=== PATIENT | male | born 1950 | race Caucasian/White ===

== ENCOUNTER 2020-06-22 12:38 | Inpatient (IN) | payer MEDICARE ==
[2020-06-22] MEDS: SODIUM CHLORIDE 0.9% 1,000 ML IV SCH ×2 (13:05→20:50)
[2020-06-22] MEDS ORDERED: HYDROmorphone 0.5 MG/0.5 ML SYRINGE IVP STA (13:45)
[2020-06-22 14:37] LABS: Glucose,Whole Blood 115 mg/dL (75-99)
[2020-06-22 14:41] LABS: Basophils # (A) 0.1 k/uL (0-0.2); Basophils % (A) 1 %; Eosinophils # (A) 0.1 k/uL (0-0.7); Eosinophils % (A) 2 %; HGB 13.6 gm/dL (13.0-17.5); Lymphocytes # (A) 1.4 k/uL (1.0-4.8); Lymphocytes % (A) 22 %; MCH 28.1 pg (25.0-35.0); MCV 82.9 fL (80.0-100.0); Mean Platelet Volume 6.8; Monocytes # (A) 0.5 k/uL (0-1.0); Monocytes % (A) 8 %; Neutrophils # (A) 4.1 k/uL (1.3-7.7); Neutrophils % (A) 64 %; Platelet Count 295 k/uL (150-450); RBC 4.83 m/uL (4.30-5.90); RDW 13.5 % (11.5-15.5); WBC 6.4 k/uL (3.8-10.6)
[2020-06-22 14:51] LABS: Calcium 9.6 mg/dL (8.4-10.2)
[2020-06-22] MEDS ORDERED: LIDOCAINE 1% INJ 10MG/ML (20 ML MDV) ONE (15:42)
[2020-06-22] MEDS ORDERED: SODIUM CHLORIDE 0.9% 1,000 ML IV ONE (15:47)
[2020-06-22] MEDS ORDERED: MIDAZOLAM 2 MG/2 ML VIAL IV ONE (16:13)
[2020-06-22] MEDS ORDERED: LIDOCAINE 1% INJ 10MG/ML (20 ML MDV) SQ ONE (16:15)
[2020-06-22] MEDS ORDERED: BIVALIRUDIN BOLUS 250 MG/50 ML IV ONE (16:20)
[2020-06-22] MEDS ORDERED: fentaNYL (PF) 50 MCG/ML 2 ML AMP ONE (16:20)
[2020-06-22] MEDS: fentaNYL (PF) 50 MCG/ML 2 ML AMP IV ONE ×2 (16:21→16:49)
[2020-06-22] MEDS ORDERED: BIVALIRUDIN 250 MG in SODIUM CHLORIDE 0.9% 50 ML IV ONE (16:22)
[2020-06-22] MEDS ORDERED: IOPAMIDOL-370 100ML BTL INJ ONE ×2 (16:39→17:30)
[2020-06-22] MEDS ORDERED: TICAGRELOR 90 MG TAB ONE (17:11)
[2020-06-22] MEDS ORDERED: TICAGRELOR 90 MG TAB PO ONE (17:13)
[2020-06-22] MEDS: NITROGLYCERIN 1000MCG/10ML SYRINGE INTRACORON ONE ×2 (17:19→17:20)
[2020-06-22] MEDS ORDERED: RX INFO: IV CONTRAST WAS GIVEN 1 EACH MISC MISCELLANE PRN (17:37)
[2020-06-22] MEDS ORDERED: ZOLPIDEM 5 MG TAB PO PRN (17:37)
[2020-06-22] MEDS ORDERED: NITROGLYCERIN SL TABS 0.4 MG TAB SUBLINGUAL PRN (17:37)
[2020-06-22] MEDS ORDERED: ATROPINE SULFATE 0.1 MG/ML 10ML SYRINGE IV PRN (17:37)
[2020-06-22] MEDS ORDERED: MAG HYDROX/AL HYDROX/SIMETH 30 ML CUP PO PRN (17:37)
--- NOTE | 2020-06-22 18:44 | PTCA ---
PERCUTANEOUSTRANS CORORONARY ANGIOGRAPHY PROCEDURE: 1. PTCA of a totally occluded vein graft to the obtuse marginal which was unsuccessful. 2. PTCA and stenting of a mid RCA, a very dominant, heavily calcified vessel, with a drug-eluting stent. Excellent result. 3. Selective injection of the left internal mammary artery graft to LAD. PERFORMED BY: Dr. Mayra Watson. Moderate conscious sedation time was 73 minutes. Patient was administered Versed. Oxygen saturation, hemodynamics and EKG were monitored closely. CLINICAL INFORMATION: Mr. Manoj Pompa is a 70-year-old gentleman with a known history of CAD, prior bypass surgery, hypertension, hyperlipidemia,and type 2 diabetes mellitus. He came in with syncope to [facility], had troponin elevation, underwent cardiac catheterization by Dr. Ventura after evaluation by Dr. Wade. Study revealed that his CARR was not identified. Two vein grafts were occluded. [place] RCA had a distal RCA stent and also mid RCA had a 95% stenosis with calcification. He was advised intervention and transferred here. If CARR was indeed occluded, this would be a high- risk PCI. I explained this to the patient and his and explained to them that I will try to open the totally occluded vein graft to the obtuse marginal. If unsuccessful, I would then consider a CARR reinjection to see if it is patent. If CARR was closed, he would require an Impella-supported PCI tomorrow. If CARR is open, I will perform PCI of RCA today. After explaining this to the patient and his , I brought him back to the cook house laborer around 4 p.m. They understood all details, including risks, benefits and options and wished to proceed. PROCEDURE NOTE: The existing 6-Uruguayan introducer in the right femoral artery was used to perform the procedure. I used a hockey-stick guide catheter to cannulate the vein graft to the obtuse marginal. I used a Whisper wire with a 2.5 balloon. With this combination I could not cross the total occlusion. It appears to be a chronic occlusion. I then switched over my efforts to check the CARR. I used a Charlie catheter and with this I performed selective injection of the left internal mammary artery graft, which was widely patent and without disease, and beyond the insertion site within the LAD there was a 70% eccentric calcified narrowing with good flow. The CARR appears to provide a good amount of circulation to the entire left system. It opacifies the LAD and diagonal, but LAD after the insertion site beyond the 2 diagonal seems to have a calcified area of narrowing. Subsequently I turned my attention to the RCA, and in view of the fact the CARR was patent, I recommended that I will proceed with RCA intervention. PCI PROCEDURE DETAILS: I used initially a multipurpose catheter but I was unable to cannulate well. I switched over to a standard right Di guide catheter of 6-Uruguayan caliber and cannulated the RCA. A run-through wire was used to cross the lesion. Wire was kept in the PLV branch. I had difficulty in getting to the lesion because of tight calcification and narrowing. I used initially a 2.5 balloon. With this I was not successful. With a 2.25 balloon I was able to open up the vessel mildly to a reasonable extent. I then advanced a 3.0 caliber 12 mm NC Trek. With this I pre-dilated the lesion. I tried to advance a 15 mm long 3.5 stent, but I had difficulty. I then double-wired. Using the run-through as a lani, I used a Whisper wire, and over the Whisper wire I advanced a 3.5 caliber 15 mm Xience stent and deployed this at the lesion at 15 atmospheres. Patient had mild chest discomfort. No significant EKG changes. Excellent angiographic result was achieved without complication. It appears in the distal RCA there is a stent which was widely patent, and this apparently was a stent that was placed sometime 4 or 5 years after his bypass. So the distal RCA before bifurcation has a patent stent. Mid RCA was now stented with a 3.5 caliber 15 mm Xience stent at high pressures. The entire RCA appears to be calcified. Excellent angiographic result without complication was achieved. Patient received 180 mg of Brilinta and also received Angiomax bolus and infusion. The sheath was taken out with an Angio-Seal device used to secure hemostasis and he was sent to the room in stable condition. Results were discussed with the patient as well as his on the phone. I expect him to be discharged tomorrow afternoon, and we will assess the LAD severity by a stress test and consider intervention if it is significant. MMODL / IJN: [id number] /
[2020-06-22 20:05] LABS: Glucose,Whole Blood 133 mg/dL (75-99)
[2020-06-22] MEDS: SYMBICORT 160-4.5 MCG INHALER INHALATION SCH (20:26)
[2020-06-22] MEDS: METOPROLOL TARTRATE 12.5 MG TAB PO SCH (20:49)
[2020-06-22] MEDS: FAMOTIDINE 20 MG TAB PO SCH (20:49)
[2020-06-22] MEDS ORDERED: ATORVASTATIN 80 MG TAB PO SCH (21:00)
--- NOTE | 2020-06-22 21:56 | P.HPIM ---
History of Present Illness H&P Date: 06/22/20 Chief Complaint: Coronary artery disease History of presenting complaint: This is a pleasant 70-year-old patient who follows with Dr. Ganga Wren. Chronic stable medical conditions include diabetes, hypertension, atrial fibrillation, asthma, hyperlipidemia, GERD. Patient has a known history of coronary artery disease with stent and bypass. Patient had presented to [facility] then he was working with the stools and felt dizzy and patient had passed out. Patient's troponins were 0.041 and 0.080. Patient underwent cardiac catheterization by Dr. Eugenio Wade was found to have 95% stenosis of mid RCA and occluded graft to the diagonal and obtuse marginal. Also some left-sided disease. Patient was therefore transferred for further intervention to [facility]. Patient was taken to the Lab and successful intervention was done more details and Dr. SHANE Watson's notes. Postprocedure patient laying in bed. Comfortable. Review of systems: GEN.: None EYES: None HEENT: None NECK: None RESPIRATORY: None CARDIOVASCULAR: None GASTROINTESTINAL: None GENITOURINARY: None MUSCULOSKELETAL: None LYMPHATICS: None HEMATOLOGICAL: None PSYCHIATRY: None NEUROLOGICAL: None Past medical history to include: Coronary artery disease with stent, bypass, diabetes, hypertension, atrial fibrillation, asthma, hyperlipidemia, GERD, with ablation Past surgical history include: , coronary artery disease with stent ablation, bypass Social history: Does not smoke. Drinks one or 2 drinks per week. . Retired from [employer] use or no fever. Physical examination: VITAL SIGNS: 98, 69, 18, 140/63, 98% room air GENERAL: BMI 30.7, laying in bed, comfortable. EYES: Pupils equal. Conjunctiva normal. HEENT: External appearance of nose and ears normal, oral cavity grossly normal. NECK: JVD not raised; masses not palpable. HEART: First and second heart sounds are normal; no edema. LUNGS: Respiratory rate normal; clear to auscultation. ABDOMEN: Soft, nontender, liver spleen not palpable, no masses palpable. PSYCH: Alert and oriented x3; mood and affect normal. NEUROLOGICAL: Cranial nerves grossly intact; no facial asymmetry, power and sensation grossly intact. LYMPHATICS: No lymph nodes palpable in the axilla and neck INVESTIGATIONS, reviewed in the clinical context: Lab work was noted at in patient's medical records at [facility]. From today. Troponins-0.041, 0.080 Assessment: -Syncope from patient having underlying significant coronary artery disease. Patient underwent successful angioplasty of totally occluded vein graft to the obtuse marginal, which was unsuccessful. Angioplasty stenting of mid RCA heavily calcified vessel, selective injection of the left internal mammary artery graft to LAD. -Coronary artery disease -Diabetes mellitus type 2 -Essential hypertension -Paroxysmal atrial fibrillation and history of ablation -Hyperlipidemia -GERD -Obesity BMI 30.7 Plan: . Patient's current medications include Lipitor, Pepcid, Glucotrol, Hyzaar, Lopressor, Singler, Aldactone, Brilinta, Repeat labs in the morning. Care was discussed with the patient questions answered. Past Medical History Past Medical History: Atrial Fibrillation, Asthma, Coronary Artery Disease (CAD), Diabetes Mellitus, GERD/Reflux, Hyperlipidemia, Hypertension History of Any Multi-Drug Resistant Organisms: None Reported Past Surgical History: Ablation, Coronary Bypass/CABG, Heart Catheterization With Stent, Tonsillectomy Additional Past Surgical History / Comment(s): Carotid Stent Past Anesthesia/Blood Transfusion Reactions: No Reported Reaction Date of Last Stent Placement:: 06/22/2020 Past Psychological History: No Psychological Hx Reported Smoking Status: Never smoker Past Alcohol Use History: Occasional Additional Past Alcohol Use History / Comment(s): 1-2 drinks a weel Past Drug Use History: None Reported - Past Family History Father Family Medical History: No Reported History Medications and Allergies Home Medications Medication Instructions Recorded Confirmed Type Aspirin [Adult Low Dose Aspirin EC] 81 mg PO DAILY 06/22/20 06/22/20 History Budesonide/Formoterol Fumarate 2 puff INHALATION BID 06/22/20 06/22/20 History [Symbicort 160-4.5 Mcg Inhaler] Famotidine 40 mg PO BID 06/22/20 06/22/20 History Fish Oil/Dha/Epa [Fish Oil 1,200 1 cap PO DAILY 06/22/20 06/22/20 History mg Fish Oil] Gemfibrozil [Lopid] 600 mg PO AC-BID 06/22/20 06/22/20 History Ipratropium-Albuterol Nebulize 3 ml INHALATION DAILY 06/22/20 06/22/20 History [Duoneb 0.5 mg-3 mg/3 ml Soln] Losartan/Hydrochlorothiazide 1 tab PO DAILY 06/22/20 06/22/20 History [Losartan-Hctz 100-25 mg Tab] Metoprolol Tartrate [Lopressor] 12.5 mg PO BID 06/22/20 06/22/20 History Montelukast [Singulair] 10 mg PO DAILY 06/22/20 06/22/20 History Multivitamins, Thera [Multivitamin 1 tab PO DAILY 06/22/20 06/22/20 History (formulary)] Rosuvastatin [Crestor] 10 mg PO DAILY 06/22/20 06/22/20 History Spironolactone 25 mg PO DAILY 06/22/20 06/22/20 History Tiotropium 2.5 Mcg/Puff [Spiriva 2 puff INHALATION PC-BID 06/22/20 06/22/20 History Respimat 2.5 Mcg] Warfarin [Coumadin] 7.5 mg PO HS 06/22/20 06/22/20 History glipiZIDE [Glucotrol] 5 mg PO AC-BRKFST 06/22/20 06/22/20 History metFORMIN HCL 1,000 mg PO BID 06/22/20 06/22/20 History Allergies Allergy/AdvReac Type Severity Reaction Status Date / Time Penicillins Allergy Unknown Verified 06/22/20 13:19 Childhood Sulfa (Sulfonamide Allergy Unknown Verified 06/22/20 13:19 Antibiotics) Childhood levofloxacin AdvReac Chest Pain Verified 06/22/20 13:19 Physical Exam Vitals: Vital Signs Temp Pulse Resp BP Pulse Ox 06/22/20 21:22 68 18 140/63 98 06/22/20 20:00 98.0 F 69 18 158/70 97 06/22/20 18:52 64 16 165/73 96 06/22/20 18:22 62 16 153/58 97 06/22/20 18:07 67 16 157/76 96 06/22/20 17:52 69 16 155/75 06/22/20 17:37 67 16 157/76 96 06/22/20 14:15 60 16 144/67 94 L 06/22/20 13:45 64 16 186/86 97 06/22/20 13:20 56 L 16 173/84 96 Intake and Output 06/22/20 06/22/20 06/22/20 06:59 14:59 22:59 Intake Total 150 379 Output Total 250 350 Balance -100 29 Intake: IV 150 129 Oral 250 Output: Urine 250 350 Other: Voiding Method Urinal Weight 99.79 kg 99.79 kg Results CBC & Chem 7: 06/22/20 14:02 06/22/20 14:02 Labs: Abnormal Lab Results - Last 24 Hours (Table) 06/22/20 06/22/20 06/22/20 Range/Units 14:02 14:34 20:04 BUN 23 H (9-20) mg/dL Glucose 115 H (74-99) mg/dL POC Glucose (mg/dL) 115 H 133 H (75-99) mg/dL Thrombosis Risk Factor Assmnt - Choose All That Apply Any of the Below Risk Factors Present?: Yes Each Factor Represents 1 point: Obesity (BMI >25) Other Risk Factors: Yes Each Risk Factor Represents 2 Points: Age 61-74 years Thrombosis Risk Factor Assessment Total Risk Factor Score: 3 Thrombosis Risk Factor Assessment Level: Moderate Risk
[2020-06-23] MEDS ORDERED: IPRATROPIUM-ALBUTEROL 3 ML NEB INHALATION PRN (03:25)
[2020-06-23] MEDS: SODIUM CHLORIDE 0.9% 1,000 ML IV SCH ×2 (04:23)
[2020-06-23 06:25] LABS: Glucose,Whole Blood 117 mg/dL (75-99)
[2020-06-23] MEDS ORDERED: glipiZIDE 5 MG TAB PO SCH (07:30)
[2020-06-23] MEDS ORDERED: IPRATROPIUM-ALBUTEROL 3 ML NEB INHALATION SCH (08:00)
[2020-06-23] MEDS: SYMBICORT 160-4.5 MCG INHALER INHALATION SCH (08:22)
[2020-06-23] MEDS ORDERED: LOSARTAN-HCTZ 50-12.5 MG 1 EACH TAB PO SCH (09:00)
[2020-06-23] MEDS ORDERED: NON FORMULARY DRUG (Fish Oil/Dha/Epa [Fish Oil 1,200 Mg Fish Oil] 1 EACH Capsule) PO SCH (09:00)
[2020-06-23] MEDS ORDERED: ASPIRIN 81 MG PO SCH (09:00)
[2020-06-23] MEDS ORDERED: SPIRONOLACTONE 25 MG TAB PO SCH (09:00)
[2020-06-23] MEDS ORDERED: TICAGRELOR 90 MG TAB PO SCH (09:00)
[2020-06-23] MEDS ORDERED: MONTELUKAST 10 MG TAB PO SCH (09:00)
[2020-06-23 09:04] LABS: Basophils % (A) 0 %; Eosinophils # (A) 0.2 k/uL (0-0.7); Eosinophils % (A) 2 %; HCT 42.2 % (39.0-53.0); HGB 13.9 gm/dL (13.0-17.5); Lymphocytes # (A) 1.3 k/uL (1.0-4.8); Lymphocytes % (A) 15 %; MCH 27.6 pg (25.0-35.0); MCV 83.5 fL (80.0-100.0); Mean Platelet Volume 6.6; Monocytes # (A) 0.4 k/uL (0-1.0); Monocytes % (A) 5 %; Neutrophils # (A) 6.6 k/uL (1.3-7.7); Neutrophils % (A) 77 %; Platelet Count 302 k/uL (150-450); RBC 5.05 m/uL (4.30-5.90); RDW 13.5 % (11.5-15.5); WBC 8.6 k/uL (3.8-10.6)
[2020-06-23 09:16] LABS: Calcium 9.8 mg/dL (8.4-10.2); Potassium 3.8 mmol/L (3.5-5.1)
[2020-06-23] MEDS: FAMOTIDINE 20 MG TAB PO SCH (09:21)
[2020-06-23] MEDS: METOPROLOL TARTRATE 12.5 MG TAB PO SCH (09:22)
--- NOTE | 2020-06-23 10:21 | P.DS ---
Providers Date of admission: 06/22/20 13:00 Attending physician: Adam Lee Consults: 06/22/20 17:37 Consult Physician Routine Consulting Provider: [facility] Consult Reason/Comments: Post Interventional patient Do you want consulting provider notified?: Already Contacted Primary care physician: [facility] Course: 70-year-old patient who follows with Dr. Ganga Wren. Chronic stable medical conditions include diabetes, hypertension, atrial fibrillation, asthma, hyperlipidemia, GERD. Patient has a known history of coronary artery disease with stent and bypass. Patient had presented to [facility] then he was working with the stools and felt dizzy and patient had passed out. Patient's troponins were 0.041 and 0.080. Patient underwent cardiac cat heterization by Dr. Eugenio Wade was found to have 95% stenosis of mid RCA and occluded graft to the diagonal and obtuse marginal. Also some left-sided disease. Patient was therefore transferred for further intervention to [facility]. Patient was taken to the Lab and successful intervention was done more details and Dr. SHANE Watson's notes. Postprocedure patient laying in bed. Comfortable. 06/23/2020 Patient had a cardiac catheterization and appears to have stent to RCA, patient the head and occluded vein graft and obtuse marginal and stent to that was unsuccessful and patient is cleared for discharge and patient will be discharged today because of the borderline kidney function hydrochlorothiazide low-dose may not be effective on this medication will be discontinued and patient will be discharged on losartan and patient will follow with PCP and his pony rougher as an outpatient PHYSICAL EXAMINATION: GENERAL: The patient is alert and oriented x3, not in any acute distress. Well developed, well nourished. HEENT: Pupils are round and equally reacting to light. EOMI. No scleral icterus. No conjunctival pallor. Normocephalic, atraumatic. No pharyngeal erythema. No thyromegaly. CARDIOVASCULAR: S1 and S2 present. No murmurs, rubs, or gallops. PULMONARY: Chest is clear to auscultation, no wheezing or crackles. ABDOMEN: Soft, nontender, nondistended, normoactive bowel sounds. No palpable organomegaly. MUSCULOSKELETAL: No joint swelling or deformity. EXTREMITIES: No cyanosis, clubbing, or pedal edema. NEUROLOGICAL: Gross neurological examination did not reveal any focal deficits. SKIN: No rashes. Assessment: -Syncope from patient having underlying significant coronary artery disease. Patient underwent successful angioplasty of totally occluded vein graft to the obtuse marginal, which was unsuccessful. Angioplasty stenting of mid RCA heavily calcified vessel, selective injection of the left internal mammary artery graft to LAD. -Coronary artery disease -Diabetes mellitus type 2 -Essential hypertension -Paroxysmal atrial fibrillation and history of ablation -Hyperlipidemia -GERD -Obesity BMI 30.7 Plan - Discharge Summary Discharge Rx Participant: No New Discharge Prescriptions: New Losartan [Cozaar] 50 mg PO DAILY #30 tab Continue Montelukast [Singulair] 10 mg PO DAILY Budesonide/Formoterol Fumarate [Symbicort 160-4.5 Mcg Inhaler] 2 puff INHALATION BID Metoprolol Tartrate [Lopressor] 12.5 mg PO BID metFORMIN HCL 1,000 mg PO BID glipiZIDE [Glucotrol] 5 mg PO AC-BRKFST Gemfibrozil [Lopid] 600 mg PO AC-BID Famotidine 40 mg PO BID Warfarin [Coumadin] 7.5 mg PO HS Tiotropium 2.5 Mcg/Puff [Spiriva Respimat 2.5 Mcg] 2 puff INHALATION PC-BID Spironolactone 25 mg PO DAILY Rosuvastatin [Crestor] 10 mg PO DAILY Ipratropium-Albuterol Nebulize [Duoneb 0.5 mg-3 mg/3 ml Soln] 3 ml INHALATION DAILY Multivitamins, Thera [Multivitamin (formulary)] 1 tab PO DAILY Fish Oil/Dha/Epa [Fish Oil 1,200 mg Fish Oil] 1 cap PO DAILY Aspirin [Adult Low Dose Aspirin EC] 81 mg PO DAILY Discontinued Losartan/Hydrochlorothiazide [Losartan-Hctz 100-25 mg Tab] 1 tab PO DAILY Discharge Medication List Aspirin [Adult Low Dose Aspirin EC] 81 mg PO DAILY 06/22/20 [History] Budesonide/Formoterol Fumarate [Symbicort 160-4.5 Mcg Inhaler] 2 puff INHALATION BID 06/22/20 [History] Famotidine 40 mg PO BID 06/22/20 [History] Fish Oil/Dha/Epa [Fish Oil 1,200 mg Fish Oil] 1 cap PO DAILY 06/22/20 [History] Gemfibrozil [Lopid] 600 mg PO AC-BID 06/22/20 [History] Ipratropium-Albuterol Nebulize [Duoneb 0.5 mg-3 mg/3 ml Soln] 3 ml INHALATION DAILY 06/22/20 [History] Metoprolol Tartrate [Lopressor] 12.5 mg PO BID 06/22/20 [History] Montelukast [Singulair] 10 mg PO DAILY 06/22/20 [History] Multivitamins, Thera [Multivitamin (formulary)] 1 tab PO DAILY 06/22/20 [Histor y] Rosuvastatin [Crestor] 10 mg PO DAILY 06/22/20 [History] Spironolactone 25 mg PO DAILY 06/22/20 [History] Tiotropium 2.5 Mcg/Puff [Spiriva Respimat 2.5 Mcg] 2 puff INHALATION PC-BID 06/22/20 [History] Warfarin [Coumadin] 7.5 mg PO HS 06/22/20 [History] glipiZIDE [Glucotrol] 5 mg PO AC-BRKFST 06/22/20 [History] metFORMIN HCL 1,000 mg PO BID 06/22/20 [History] Losartan [Cozaar] 50 mg PO DAILY #30 tab 06/23/20 [Rx] Follow up Appointment(s)/Referral(s): Jagdish Wren MD [REFERRING] - 1 Week Discharge Disposition: HOME SELF-CARE
[2020-06-23 11:10] VITALS: BP 156/72; PULSE 65; RESP 16; TEMP 98.1
[2020-06-23 11:47] LABS: Glucose,Whole Blood 104 mg/dL (75-99)
[2020-06-23] MEDS ORDERED: IPRATROPIUM 0.5 MG/2.5 ML NEBU INHALATION SCH (12:00)
[2020-06-23 18:19] LABS: Hemoglobin A1C 6.8 % (4.0-6.0)
== END 2020-06-23 13:15 | disposition home or self-care (01) | DRG 247 ==
LOC: 2ORMAIN 13:00 → 3SCARD 17:43
PROVIDERS: ADMIT Hospitalist; ATTEND Hospitalist
PROC: B2121ZZ Fluoroscopy of Single Coronary Artery Bypass Graft using Low Osmolar Contrast (ICD-10-PCS; principal; 2020-06-22 14:40)
PROC: 027034Z Dilation of Coronary Artery, One Artery with Drug-eluting Intraluminal Device, Percutaneous Approach (ICD-10-PCS; principal; 2020-06-22 14:40)
DX: I25.10 Atherosclerotic heart disease of native coronary artery without angina pectoris (principal); I25.810 Atherosclerosis of coronary artery bypass graft(s) without angina pectoris; E66.9 Obesity, unspecified; E11.9 Type 2 diabetes mellitus without complications; E78.5 Hyperlipidemia, unspecified; I10 Essential (primary) hypertension; I48.0 Paroxysmal atrial fibrillation; K21.9 Gastro-esophageal reflux disease without esophagitis; J45.909 Unspecified asthma, uncomplicated; Z68.30 Body mass index [BMI] 30.0-30.9, adult; Z79.01 Long term (current) use of anticoagulants; Z79.51 Long term (current) use of inhaled steroids; Z79.82 Long term (current) use of aspirin; Z79.84 Long term (current) use of oral hypoglycemic drugs; Z79.899 Other long term (current) drug therapy; Z98.890 Other specified postprocedural states; Z88.1 Allergy status to other antibiotic agents; Z88.0 Allergy status to penicillin; Z88.2 Allergy status to sulfonamides
CPT/HCPCS: 80048; 83036; 85025; 92920; 94640